=== PATIENT | female | born 1985 | race Two or more races ===

== ENCOUNTER 2019-12-18 20:00 | Outpatient (CLI) | payer MEDICAID, SELFPAY | END 2019-12-18 20:01 | disposition home or self-care (01) | LOC: SLEEP 12-19 08:49 | PROVIDERS: Visit Provider Registered Nurse | DX: G47.33 Obstructive sleep apnea (adult) (pediatric) (principal) | CPT/HCPCS: 95810; 95811 ==

== ENCOUNTER → 2020-12-24 10:12 | Outpatient (BNVA) | payer MEDICAID, SELFPAY | PROVIDERS: Visit Provider Counselor Professional | DX: F43.12 Post-traumatic stress disorder, chronic (principal) | CPT/HCPCS: 90832 ==

== ENCOUNTER → 2021-01-07 10:07 | Outpatient (BNVA) | payer MEDICAID, SELFPAY | PROVIDERS: Visit Provider Counselor Professional | DX: F43.12 Post-traumatic stress disorder, chronic (principal) | CPT/HCPCS: 90832 ==

== ENCOUNTER → 2021-01-21 10:10 | Outpatient (BNVA) | payer MEDICAID, SELFPAY | PROVIDERS: Visit Provider Counselor Professional | DX: F43.12 Post-traumatic stress disorder, chronic (principal) | CPT/HCPCS: 90834 ==

== ENCOUNTER → 2021-02-04 10:09 | Outpatient (BNVA) | payer MEDICAID, SELFPAY | PROVIDERS: Visit Provider Counselor Professional | DX: F43.12 Post-traumatic stress disorder, chronic (principal) | CPT/HCPCS: 90832 ==

== ENCOUNTER → 2021-03-11 10:10 | Outpatient (BNVA) | payer MEDICAID, SELFPAY | PROVIDERS: Visit Provider Counselor Professional | DX: F43.12 Post-traumatic stress disorder, chronic (principal) | CPT/HCPCS: 90832 ==

== ENCOUNTER → 2021-04-08 10:08 | Outpatient (BNVA) | payer MEDICAID, SELFPAY | PROVIDERS: Visit Provider Counselor Professional | DX: F43.12 Post-traumatic stress disorder, chronic (principal) | CPT/HCPCS: 90832 ==

== ENCOUNTER → 2023-07-12 10:43 | Outpatient (BNVA) | payer MEDICAID, SELFPAY | PROVIDERS: PCP Registered Nurse; Visit Provider Internal Medicine Cardiovascular Disease | DX: R07.9 Chest pain, unspecified (principal); R01.1 Cardiac murmur, unspecified; G47.33 Obstructive sleep apnea (adult) (pediatric); F17.218 Nicotine dependence, cigarettes, with other nicotine-induced disorders; F41.9 Anxiety disorder, unspecified; I10 Essential (primary) hypertension; E11.69 Type 2 diabetes mellitus with other specified complication; E66.9 Obesity, unspecified | CPT/HCPCS: 93005; 99205 ==

== ENCOUNTER 2023-07-28 09:57 | Outpatient (CLI) | payer MEDICAID, SELFPAY ==
--- NOTE | 2023-07-28 10:15 | USCV_ITS ---
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0 cm RA Width 3.8 cm RA Height 3.8 cm Aorta at Sinotubular Diameter 2.7 cm IVC Diameter 2.0 cm M-MODE Aortic Annulus Diameter 2.5 cm LA Ao Ratio MM 1.5 MV E Point Septal Separation 0.4 cm DOPPLER AV Peak Velocity 170.0 cm/s LVOT Peak Velocity 123.0 cm/s AV Area Cont Eq vti 2.9 cm squared AV Area Cont Eq pk 2.4 cm squared MV Area PHT 3.9 cm squared Mitral E to A Ratio 1.1 MV E' Velocity 51.0 cm/s Mitral E to MV E' Ratio 9.7 Mitral E to LV E' Lateral Ratio 8.1 Mitral E to LV E' Septal Ratio 12.4 TR Peak Velocity 228.2 cm/s TR Peak Gradient 20.8 mmHg TR Mean Velocity 158.6 cm/s TR Mean Gradient 11.4 mmHg TR Velocity Time Integral 45.3 cm TV Peak E Velocity 55.0 cm/s Right Atrial Pressure 3.0 mmHg Pulmonary Artery Systolic Pressu 23.8 mmHg RV Acceleration Time 0.2 s RV Ejection Time 0.4 s RV AcT/ET 0.5 FINDINGS Left Ventricle Normal left ventricular size and systolic function, EF 68 %. No regional wall motion abnormalities. Right Ventricle The right ventricle is normal in size and function. Right Atrium The right atrium is normal in size. Left Atrium The left atrium is normal in size. Mitral Valve No gross abnormalities no Aortic Valve No gross abnormalities noted Tricuspid Valve Trace tricuspid valve regurgitation. Pulmonic Valve No gross abnormalities noted Pericardium Normal pericardium without effusion. Aorta Normal ascending aorta dimension. IVC The inferior vena cava appears normal. CONCLUSIONS Normal left ventricular size and systolic function, EF 68 %. No regional wall motion abnormalities. Trace tricuspid valve regurgitation. Normal cardiac chamber sizes No significant valvular abnormalities noted There is no pericardial effusion. There are no intracardiac masses. No intracardiac shunts, by color-flow Doppler exam No similar previous studies are available for comparison Dr Hallie Jaime MD FACC (Electronically Signed) Final Date: 28 July 2023 18:27 S
== END 2023-07-28 09:58 | disposition home or self-care (01) ==
LOC: RAD 09:59
PROVIDERS: PCP Registered Nurse; Visit Provider Internal Medicine Cardiovascular Disease
DX: R06.09 Other forms of dyspnea (principal); Z86.79 Personal history of other diseases of the circulatory system
CPT/HCPCS: 93306